=== PATIENT | female | born 1950 | race Caucasian/White ===

== ENCOUNTER 2018-04-26 05:10 | Day surgery (SDC) | payer BC ==
[2018-04-24 09:24] LABS: PARTIAL THROMBOPLASTIN TIME 29 SECONDS (22-32); PROTHROMBIN TIME 9.9 SECONDS (9.0-12.0)
[2018-04-24 09:27] LABS: BASOPHILS # (AUTO) 0.1 X10'3 (0-0.2); EOSINOPHILS # (AUTO) 0.4 X10'3 (0-0.9); EOSINOPHILS % (AUTO) 4.7 % (0-6); HEMATOCRIT 41.9 % (35.0-45.0); LYMPHOCYTES # (AUTO) 0.8 X10'3 (1.1-4.8); LYMPHOCYTES % (AUTO) 10.1 % (21-51); MEAN CORPUSCULAR HEMOGLOBIN 29.6 PG (27.0-31.0); MEAN CORPUSCULAR HGB CONC 33.4 g/dL (33.0-36.5); MEAN CORPUSCULAR VOLUME 88.6 FL (78-98); MEAN PLATELET VOLUME 8.8 FL (7.4-10.4); MONOCYTES # (AUTO) 0.4 X10'3 (0-0.9); MONOCYTES % (AUTO) 5.8 % (2-12); NEUTROPHILS % (AUTO) 78.4 % (42-75); PLATELET COUNT 277 X10'3 (140-440); RED BLOOD COUNT 4.73 X10'6 (4.20-5.60); RED CELL DISTRIBUTION WIDTH 13.6 % (11.5-14.5); WHITE BLOOD COUNT 7.6 X10'3 (4.5-11.0)
[2018-04-24 09:29] LABS: ALBUMIN 3.8 G/DL (3.4-5.0); ANION GAP 9 (8-16); BLOOD UREA NITROGEN 15 MG/DL (7-18); BUN/CREATININE RATIO 17.6 (6.6-38.0); CALCIUM 10.6 MG/DL (8.5-10.1); CHLORIDE 104 MMOL/L (99-107); CREATININE 0.85 MG/DL (0.40-0.90); GLUCOSE 93 MG/DL (70-104); SODIUM 140 MMOL/L (135-145); TOTAL CARBON DIOXIDE 26.9 MMOL/L (24-32); eGFR 67 ML/MIN
[2018-04-24 09:31] LABS: POTASSIUM 4.3 MMOL/L (3.5-5.1)
[~2018-04-26] VITALS: Ht 167.6 cm; Wt 53.4 kg
[2018-04-26] VITALS (10 sets, daily range): BP systolic 113–143; BP diastolic 56–97
[~2018-04-26 05:10] MED LIST: LIDOcaine 1% (10mg/ml)w/preservative injection 20ml MDV ONE; heparin 1,000 UNITS/NS 500ml 500 ML ONE; iohexol 350MG/ML 100ml bottle IV ONE
[2018-04-26] MEDS ORDERED: LORazepam 0.5 MG tablet PO PRN (05:25)
[2018-04-26] MEDS ORDERED: diphenhydrAMINE 25mg capsule PO PRN (05:25)
[2018-04-26] MEDS ORDERED: normal saline 1000ml 1,000 ML IV SCH (05:25)
[2018-04-26] MEDS ORDERED: CHOL100046 PO (06:04)
[2018-04-26] MEDS ORDERED: ALBU6.7H INH (06:04)
[2018-04-26] MEDS ORDERED: OMEP40CA37 PO (06:04)
[2018-04-26] MEDS ORDERED: LEVO50TA PO (06:04)
[2018-04-26] MEDS ORDERED: BIOT1TAB7 PO (06:04)
[2018-04-26] MEDS ORDERED: ASPI-1053 (06:04)
[2018-04-26] MEDS ORDERED: IBUP-1984 PO (06:04)
[2018-04-26] MEDS ORDERED: FLUT1DIS INH (06:04)
[2018-04-26] MEDS ORDERED: midazolam 2 mg/2 ml injection ONE (06:30)
[2018-04-26] MEDS ORDERED: fentaNYL/PF 50MCG/1 ML 2ML syringe ONE (06:30)
[2018-04-26] MEDS ORDERED: heparin 1,000unit/ml 10ml vial 10 ML ONE (06:59)
[2018-04-26] MEDS ORDERED: iohexol 350 MG/ML 50ML vial IV ONE ×2 (07:00→07:04)
[2018-04-26] MEDS ORDERED: ticagrelor 90mg tablet ONE (07:08)
[2018-04-26] MEDS ORDERED: OXAZEpam 15mg capsule PO PRN (07:50)
[2018-04-26] MEDS ORDERED: ondansetron/PF 4mg/2ml inj IV PRN (07:50)
[2018-04-26] MEDS ORDERED: proCHLORperazine 10 MG/2 ml inj IV PRN (07:50)
[2018-04-26] MEDS ORDERED: HYDROcodone/acetaminophen 10/325mg tab PO PRN (07:50)
[2018-04-26] MEDS ORDERED: HYDROcodone/acetaminophen 5mg/325mg tablet PO PRN (07:50)
== END 2018-04-26 10:25 | disposition home or self-care (01) ==
LOC: SSTAY O 05:10
PROVIDERS: ATTEND Internal Medicine Interventional Cardiology
DX: I25.119 Atherosclerotic heart disease of native coronary artery with unspecified angina pectoris (principal); I48.91 Unspecified atrial fibrillation; J45.909 Unspecified asthma, uncomplicated; E78.5 Hyperlipidemia, unspecified; E03.9 Hypothyroidism, unspecified; Z88.8 Allergy status to other drugs, medicaments and biological substances; Z79.899 Other long term (current) drug therapy
CPT/HCPCS: 36415; 80048; 85025; 85610; 85730; 93005; 93458; 99152; 99153; A6257; C1874; C9600; J1644; J2001; J2250; J3010; J7030; Q0163; Q9967; C1760; C1769

== ENCOUNTER 2018-04-28 08:37 | Emergency (ER) | payer BC, MEDICARE ==
[~2018-04-28] VITALS: Ht 167.6 cm; Wt 53.6 kg
[~2018-04-28 08:37] MED LIST changes: +ALBU6.7H INH; +ASPI-1053; +BIOT1TAB7 PO; +CHOL100046 PO; +FLUT1DIS INH; +IBUP-1984 PO; +LEVO50TA PO; -LIDOcaine 1% (10mg/ml)w/preservative injection 20ml MDV ONE; +OMEP40CA37 PO; -heparin 1,000 UNITS/NS 500ml 500 ML ONE; -iohexol 350MG/ML 100ml bottle IV ONE
[2018-04-28 09:12] LABS: BASOPHILS # (AUTO) 0.1 X10'3 (0-0.2); BASOPHILS % (AUTO) 0.8 % (0-1); EOSINOPHILS # (AUTO) 0.2 X10'3 (0-0.9); EOSINOPHILS % (AUTO) 2.2 % (0-6); HEMATOCRIT 40.1 % (35.0-45.0); HEMOGLOBIN 13.6 g/dl (12.0-16.0); LYMPHOCYTES # (AUTO) 0.6 X10'3 (1.1-4.8); LYMPHOCYTES % (AUTO) 6.7 % (21-51); MEAN CORPUSCULAR HEMOGLOBIN 29.6 PG (27.0-31.0); MEAN CORPUSCULAR HGB CONC 33.8 g/dL (33.0-36.5); MEAN CORPUSCULAR VOLUME 87.6 FL (78-98); MEAN PLATELET VOLUME 8.3 FL (7.4-10.4); MONOCYTES # (AUTO) 0.5 X10'3 (0-0.9); MONOCYTES % (AUTO) 5.9 % (2-12); NEUTROPHILS # (AUTO) 7.6 X10'3 (1.8-7.7); NEUTROPHILS % (AUTO) 84.4 % (42-75); PLATELET COUNT 291 X10'3 (140-440); RED BLOOD COUNT 4.58 X10'6 (4.20-5.60); RED CELL DISTRIBUTION WIDTH 13.7 % (11.5-14.5)
[2018-04-28 09:26] LABS: ALANINE AMINOTRANSFERASE 30 U/L (12-78); ALBUMIN 3.7 G/DL (3.4-5.0); ALBUMIN/GLOBULIN RATIO 0.8 (1.1-1.5); ALKALINE PHOSPHATASE 91 IU/L (46-116); ANION GAP 14 (8-16); ASPARTATE AMINO TRANSFERASE 25 U/L (10-37); BILIRUBIN,TOTAL 0.6 MG/DL (0.1-1.0); BLOOD UREA NITROGEN 16 MG/DL (7-18); BUN/CREATININE RATIO 18.4 (6.6-38.0); CALCIUM 9.7 MG/DL (8.5-10.1); CHLORIDE 102 MMOL/L (99-107); CREATININE 0.87 MG/DL (0.40-0.90); GLUCOSE 112 MG/DL (70-104); POTASSIUM 3.4 MMOL/L (3.5-5.1); SODIUM 140 MMOL/L (135-145); TOTAL CARBON DIOXIDE 24.4 MMOL/L (24-32); TOTAL PROTEIN 8.2 G/DL (6.4-8.2); eGFR 65 ML/MIN
[2018-04-28 09:32] LABS: PARTIAL THROMBOPLASTIN TIME 30 SECONDS (22-32); PROTHROMBIN TIME 10.2 SECONDS (9.0-12.0)
[2018-04-28] MEDS ORDERED: nitroGLYCERIN 1gm ointment UD TP ONE (10:05)
[2018-04-28] MEDS ORDERED: aspirin 81mg tab.chew PO ONE (10:05)
[2018-04-28] MEDS ORDERED: morphine 4 MG/ML inj SYRINge IV ONE (12:45)
[2018-04-28] MEDS ORDERED: normal saline 1000ML IV soln IVB ONE (12:45)
[2018-04-28] MEDS ORDERED: ondansetron/PF 4mg/2ml inj IV ONE (12:45)
[2018-04-28 14:55] VITALS: BP 115/83
== END 2018-04-28 14:40 | disposition home or self-care (01) ==
LOC: ER 08:38
DX: R07.89 Other chest pain (principal); R06.02 Shortness of breath; M25.512 Pain in left shoulder; M54.2 Cervicalgia; R11.2 Nausea with vomiting, unspecified; J45.909 Unspecified asthma, uncomplicated; Z98.890 Other specified postprocedural states; Z88.8 Allergy status to other drugs, medicaments and biological substances; Z79.82 Long term (current) use of aspirin
CPT/HCPCS: 36415; 71045; 80053; 84484; 85025; 85610; 85730; 93005; 96361; 96374; 96375; 99284; J2270; J2405; J7030

== ENCOUNTER → 2019-11-20 | Outpatient (CLI) | payer OTHER ==
[~2019-11-20] MED LIST changes: -ALBU6.7H INH; +ALBU6.7H9 INH; -ASPI-1053; -BIOT1TAB7 PO; -CHOL100046 PO; -IBUP-1984 PO; +OMEP40CA13 PO; -OMEP40CA37 PO
== END | disposition home or self-care (01) ==
LOC: VAS 14:09
PROVIDERS: ATTEND Orthopaedic Surgery
DX: I82.401 Acute embolism and thrombosis of unspecified deep veins of right lower extremity (principal)
CPT/HCPCS: 93971